=== PATIENT | female | born 1945 | race Caucasian/White ===

== ENCOUNTER 2017-02-26 18:16 | Emergency (ER) | payer MEDICARE, BC ==
[2017-02-26 18:25] VITALS: BP 151/97
--- NOTE | 2017-02-26 19:06 | ERNOTE ---
Integumentary HPI - Narrative Date of Service: 02/26/17 - General Presenting Symptoms: rash Time Seen by Provider: 02/26/17 18:31 Source: patient, RN notes reviewed Exam Limitations: no limitations - Immun/Allergies/Home Medications Immunizations: IMMUNIZATION HX Immunizations Up to Date Yes History of Influenza Vaccine No Hx Pneumococcal Vaccination No Allergies/Adverse Reactions: Allergies Allergy/AdvReac Type Severity Reaction Status Date / Time Sulfa (Sulfonamide Allergy Verified 02/26/17 18:25 Antibiotics) Home Medications: HOME MEDICATIONS Fluticasone Furoate [Veramyst] 10 gm NS DAILY 09/03/14 [Last Taken Unknown] Progesterone [Progesterone Vaginal Suppository] 200 mg VG Q2D 02/26/17 [Last Taken Unknown] Triamcinolone Acetonide [Kenalog 0.1%] 15 gm TP TID #2 tube 02/26/17 [Last Taken Unknown] - History of Present Illness Narrative: 72 y/o female ambulatory to the ED for an "allergic reaction" to her electrodes on her event monitor. She began wearing the monitor on 02/13/17. She has been changing and moving the leads every 2 days. She started developing red, inflamed areas where the patches had been. She tried taking an allergy medication without improvement. She has contacted the company that supplied her monitor. They are sending her a different type of electrode. Quality: Reports: itching Exposure: Reports: other Associated Symptoms: Reports: rash, change in skin texture, swelling/mass/ lumps. Denies: blisters, hives, petechiae, fever, malaise Review of Systems - Review of Systems Constitutional: Absent: recent illness, fever, malaise EYE: Present: no symptoms reported ENT: Absent: nose congestion, throat swelling Respiratory: Absent: cough, wheezing, stridor Cardiology: Present: no symptoms reported Gastrointestinal/Abdominal: Present: no symptoms reported Genitourinary: Present: no symptoms reported Musculoskeletal: Present: no symptoms reported Skin: Present: rash, lesions, change in color Neurological: Absent: headache, dizziness/light-headedness Endocrine: Present: no symptoms reported Hematologic/Lymphatic: Present: no symptoms reported Psych: Present: no symptoms reported - Patient's Past Medical History Patient History - Medical: Arthritis Patient History - Cardiac/Respiratory: No pertinent hx Patient History - Cancer: No Hx of Cancer Patient History - Surgical Procedures: Appendectomy, D & C, Hysterectomy, T & A , Other - Social History Living Situations: home Psych History: No pertinent hx Does anyone smoke in the home?: No Smoking Status: Never smoker Alcohol Use: none Drug Use: none - Immunizations Immunizations Up to Date: Yes Hx Pneumococcal Vaccination: No History of Influenza Vaccine: No Physical Exam - Physical Exam General Appearance: Present: wd/wn, alert, no apparent distress Eye Exam: Normal inspection: bilateral Ears, Nose, Throat: Present: normal ENT inspection Neck: Present: normal inspection, nontender, supple Respiratory: Present: no respiratory distress, normal breath sounds, no accessory muscle use, lungs clear Cardiovascular/Chest: Present: regular rate, rhythm, no murmur Extremity Exam: Present: normal inspection, no edema Neurological Exam: Present: alert, oriented, normal mood/affect, no motor/ sensory deficits Skin Exam: Present: warm/dry, skin rash - circular erythematous, inflammed lesions shaped like EKG electrodes on chest and abdomen ED Progress - Vital Signs Patient's Vital Signs:: I have reviewed the patient's vital signs. Vital Signs: Vital Signs 02/26/17 18:21 Temperature 36.6 C Pulse Rate 81 Respiratory 16 Rate Blood Pressure 151/97 O2 Sat by Pulse 98 Oximetry - Progress/Reassessment Chief Complaint: Allergic Reaction Progress:: Unchanged Departure Clinical Impression: Contact dermatitis due to adhesives Qualifiers: Contact dermatitis type: unspecified Qualified Code(s): L23.1 - Allergic contact dermatitis due to adhesives - Departure Disposition: Home Follow Up Needed Condition: Good Instructions: Contact Dermatitis, [id number] Additional Instructions: Contact Dr. Dixon's office if symptoms continue Referrals: Amarilis Foster, [employer] [Primary Care Provider] - Prescriptions: Triamcinolone Acetonide [Kenalog 0.1%] 15 gm TP TID #2 tube
== END 2017-02-26 18:58 | disposition home or self-care (01) ==
LOC: ER 18:16
DX: L23.1 Allergic contact dermatitis due to adhesives (principal)